=== PATIENT | male | born 1990 | race Caucasian/White ===

== ENCOUNTER 2016-11-30 20:40 | Emergency (ER) | payer BC, OTHER ==
[2016-11-30] MEDS ORDERED: Lidocaine 2% Viscous Solution 15 ML Cup ONE ×2 (20:58→21:13)
--- NOTE | 2016-11-30 21:12 | EDM.PDOC ---
ED HPI GENERAL MEDICAL PROBLEM - General Chief Complaint: Laceration Stated Complaint: CUT ON LEFT PINKY FINGER Time Seen by Provider: 11/30/16 20:55 Source of Information: Reports: Patient History Limitations: Reports: No Limitations - History of Present Illness INITIAL COMMENTS - FREE TEXT/NARRATIVE: History of present illness: [26 rolled male comes in status post trauma to left pinky 2 days ago. Patient indicates that he had an initial workup but the PT continues to be swollen and painful and beginning to look infected despite previous evaluation.] Review of systems: As per history of present illness and below otherwise all systems reviewed and negative. Past medical history: As per history of present illness and as reviewed below otherwise noncontributory. Surgical history: As per history of present illness and as reviewed below otherwise noncontributory. Social history: No reported history of drug or alcohol abuse. Family history: As per history of present illness and as reviewed below otherwise noncontributory. Physical exam: HEENT: Atraumatic, normocephalic, pupils reactive, negative for conjunctival pallor or scleral icterus, mucous membranes moist, throat clear, neck supple, nontender, trachea midline. Lungs: Clear to auscultation, breath sounds equal bilaterally, chest nontender. Heart: S1S2, regular, negative for clicks, rubs, or JVD. Abdomen: Soft, nondistended, nontender. Negative for masses or hepatosplenomegaly. Negative for costovertebral tenderness. Pelvis: Stable nontender. Genitourinary: Deferred. Rectal: Deferred. Extremities: Left fifth digit noted to be slightly deformed significant amounts of edema and ecchymosis, maceration with curshing injury negative for cords or calf pain. Neurovascular unremarkable. Neuro: Awake, alert, oriented. Cranial nerves II through XII unremarkable. Cerebellum unremarkable. Motor and sensory unremarkable throughout. Exam nonfocal. Diagnostics: [X-ray of fifth digit left hand] Therapeutics: [Lidocaine, 1 g ceftriaxone ] Impression: [finger injury] Plan: [wrap/andtibiotics] Definitive disposition and diagnosis as appropriate pending reevaluation and review of above. Left 5-Little finger Pain Score (Numeric/FACES): 1 - Related Data Allergies Allergy/AdvReac Type Severity Reaction Status Date / Time No Known Allergies Allergy Verified 06/23/14 23:42 Home Meds: Home Meds Cephalexin [Keflex] 500 mg PO QID #40 capsule 11/30/16 [Rx] Past Medical History - Past Health History Medical/Surgical History: Denies Medical/Surgical History Musculoskeletal History: Reports: Other (See Below) Other Musculoskeletal History: right hand injury - Infectious Disease History Infectious Disease History: Reports: Chicken Pox - Past Surgical History Musculoskeletal Surgical History: Reports: Other (See Below) Other Musculoskeletal Surgeries/Procedures:: right hand surgery for fracture Social & Family History - Family History Family Medical History: Noncontributory - Tobacco Use Smoking Status *Q: Current Some Day Smoker Years of Tobacco use: 6 Packs/Tins Daily: 0.5 Tobacco Use Comment: chews 1 can daily, smokes 1 pk wkly - Caffeine Use Caffeine Use: Reports: Coffee - Alcohol Use Days Per Week of Alcohol Use: 7 Number of Drinks Per Day: 3 Total Drinks Per Week: 21 - Recreational Drug Use Recreational Drug Use: No ED ROS GENERAL - Review of Systems Review Of Systems: See Below (See history of present illness) ED EXAM, SKIN/RASH Exam: See Below (History of present illness) Course - Vital Signs Last Recorded V/S: Last Vital Signs Temp 36.7 C 11/30/16 20:44 Pulse 85 11/30/16 20:44 Resp 14 11/30/16 20:44 BP 134/92 H 11/30/16 20:44 Pulse Ox 98 11/30/16 20:44 - Orders/Labs/Meds Orders: Active Orders 24 hr Category Date Time Status Fingers Fifth Digit Lt F4 [CR] Stat Exams 11/30/16 21:39 Ordered cefTRIAXone 1,000 MG,Lidocaine 1% 2.1 ML Med 11/30/16 21:45 Ordered cefTRIAXone [Rocephin] 1,000 mg Lidocaine 1% [Xylocaine-MPF 1%] 2.1 ml IM Q24H Medication Orders Ceftriaxone Sodium 1,000 mg/ (Lidocaine HCl 2.1 ml) 0 mg IM Q24H YAW Meds: Medications Generic Name Dose Route Start Last Admin Trade Name Freq PRN Reason Stop Dose Admin Ceftriaxone Sodium 1,000 mg/ 0 mg 11/30/16 21:45 Lidocaine HCl 2.1 ml IM Q24H YAW Discontinued Medications Generic Name Dose Route Start Last Admin Trade Name Freq PRN Reason Stop Dose Admin Lidocaine HCl 15 ml 11/30/16 20:58 Xylocaine 2% Viscous .ROUTE 11/30/16 20:59 .STK-MED ONE Lidocaine HCl 15 ml 11/30/16 21:13 Xylocaine 2% Viscous .ROUTE 11/30/16 21:14 .STK-MED ONE Lidocaine HCl 20 ml 11/30/16 21:23 11/30/16 21:33 Xylocaine 1% INJECT 11/30/16 21:24 20 ml ONETIME ONE Administration Departure - Departure Time of Disposition: 22:23 Disposition: Home, Self-Care 01 Condition: Good Clinical Impression: Broken skin - Discharge Information Forms: ED Department Discharge Additional Instructions: The following information is given to patients seen in the emergency department who are being discharged to home. This information is to outline your options for follow-up care. We provide all patients seen in our emergency department with a follow-up referral. The need for follow-up, as well as the timing and circumstances, are variable depending upon the specifics of your emergency department visit. If you don't have a primary care physician on staff, we will provide you with a referral. We always advise you to contact your personal physician following an emergency department visit to inform them of the circumstance of the visit and for follow-up with them and/or the need for any referrals to a consulting specialist. The emergency department will also refer you to a specialist when appropriate. This referral assures that you have the opportunity for follow-up care with a specialist. All of these measure are taken in an effort to provide you with optimal care, which includes your follow-up. Under all circumstances we always encourage you to contact your private physician who remains a resource for coordinating your care. When calling for follow-up care, please make the office aware that this follow-up is from your recent emergency room visit. If for any reason you are refused follow-up, please contact the [facility] Emergency Department at and asked to speak to the emergency department charge nurse. Take Medication as directed Follow-up with PCP in 1-2 days Return to ED as needed as discussed You've been given referral to a specialist and hand repair please follow-up with them Saturday for further evaluation [facility] Special[facility] Care - Plastic Surgery Professional Building [address] [place] [address], [address] [place] [address] - My Orders Last 24 Hours: My Active Orders 11/30/16 21:39 Fingers Fifth Digit Lt F4 [CR] Stat 11/30/16 21:45 cefTRIAXone 1,000 MG,Lidocaine 1% 2.1 ML cefTRIAXone [Rocephin] 1,000 mg Lidocaine 1% [Xylocaine-MPF 1%] 2.1 ml IM Q24H - Assessment/Plan Last 24 Hours: My Active Orders 11/30/16 21:39 Fingers Fifth Digit Lt F4 [CR] Stat 11/30/16 21:45 cefTRIAXone 1,000 MG,Lidocaine 1% 2.1 ML cefTRIAXone [Rocephin] 1,000 mg Lidocaine 1% [Xylocaine-MPF 1%] 2.1 ml IM Q24H
[2016-11-30] MEDS ORDERED: Lidocaine 1% 20 ML MDV INJECT ONE (21:23)
[2016-11-30] MEDS ORDERED: cefTRIAXone 1,000 MG, Lidocaine 1% 2.1 ML IM SCH ×2 (21:45)
[2016-11-30] MEDS ORDERED: Bacitracin Oint 1 GM U/D Packet TOP ONE (22:27)
[2016-11-30 23:00] VITALS: BP 132/88
--- NOTE | 2016-12-03 11:41 | CR ---
EXAM DATE: 11/30/16 PATIENT'S AGE: 26 Patient: RIGO KAY Facility: [place], [place] Site . Site : 1990 Study: XRay Extremity 5th digit [id number]/[id number] 10:00:22 PM Ordering Physician: Doctor Kulkarni Final Report: INDICATION: trauma/injury to 5th digit TECHNIQUE: Three views of the left little finger COMPARISON: None FINDINGS: Bones: No fractures or bone lesions. Joint spaces: Unremarkable. Soft tissues: Soft tissue laceration along the mid left little finger with no radiopaque foreign body. IMPRESSION: Soft tissue laceration along the mid left little finger with no radiopaque foreign body. No acute bony abnormality. Dictated by Servando Montoya MD @ 11/30/2016 10:11:46 PM Dictated by: Servando Montoya MD @ 11/30/2016 22:11:54 (Electronic Signature) Report Signed by Proxy. [email or web address]
== END 2016-11-30 23:00 | disposition home or self-care (01) ==
LOC: MW.ED 20:40
DX: S67.197A Crushing injury of left little finger, initial encounter (principal); S61.217A Laceration without foreign body of left little finger without damage to nail, initial encounter; F17.210 Nicotine dependence, cigarettes, uncomplicated; W20.8XXA Other cause of strike by thrown, projected or falling object, initial encounter
CPT/HCPCS: 73140; 99283; J0696; 99282